=== PATIENT | female | born 1955 | race Caucasian/White ===

== ENCOUNTER 2024-04-24 07:37 | Day surgery (SDC) | payer MEDICARE, BC ==
[~2024-04-24] VITALS: Ht 160 cm; Wt 60.8 kg
[~2024-04-24 07:37] MED LIST: DICLOFENAC PO; MAXALT-MLT10 MG SL; ROSUVASTATIN CA10 MG PO
[2024-04-24] MEDS ORDERED: ONDANSETRON HCl 4 MG/2 ML SDV ONE (07:40)
[2024-04-24] MEDS ORDERED: FAMOTIDINE 10MG/ML 2ML SDV IV ONE (07:40)
[2024-04-24] MEDS ORDERED: LACTATED RINGER'S 1,000 ML IV ONE (07:41)
[2024-04-24 09:50] VITALS: BP 122/50
[2024-04-24] MEDS ORDERED: PROPOFOL 200 MG/20 ML VIAL IV ONE (13:41)
[2024-04-24] MEDS ORDERED: LIDOCAINE HCL 2% 2ML SDV IV ONE (13:41)
== END 2024-04-24 10:19 | disposition home or self-care (01) ==
LOC: ENDO 07:37
PROVIDERS: ATTEND Surgery
PROC: 0DJD8ZZ Inspection of Lower Intestinal Tract, Via Natural or Artificial Opening Endoscopic (ICD-10-PCS; principal; 2024-04-24)
DX: Z12.11 Encounter for screening for malignant neoplasm of colon (principal); K64.8 Other hemorrhoids; E78.5 Hyperlipidemia, unspecified
CPT/HCPCS: J2405